=== PATIENT | female | born 1960 | race Caucasian/White ===

== ENCOUNTER → 2023-12-12 10:55 | Outpatient (CLI) | payer BC, SELFPAY ==
--- NOTE | 2023-12-12 10:56 | DI.MG.S_ITS ---
BILATERAL DIGITAL SCREENING MAMMOGRAM 3D/2D WITH CAD: 12/12/2023 CLINICAL: Routine screening. Comparison is made to exams dated: 07/17/2022 mammogram, 02/28/2021 mammogram, and 12/04/2019 mammogram - outside location. The breasts are heterogeneously dense, which may obscure small masses (category c / 51-75% glandular tissue). Current study was also evaluated with a Computer Aided Detection (CAD) system. There is a biopsy clip in the right breast. No significant masses, calcifications, or other findings are seen in either breast. There has been no significant interval change. IMPRESSION: NEGATIVE There is no mammographic evidence of malignancy. A 1 year screening mammogram is recommended. Based on the Tyrer Cuzick model (a risk assessment model) the patient's lifetime risk is 11.3% and her 10 year risk is 4.9%. According to the ACR, ACS, and NCCN guidelines, an annual breast MRI exam along with mammogram is recommended if the patient's lifetime risk is 20% or greater. This exam was interpreted at Station ID: [id number]. NOTE: For mammograms, a report in lay terms will be sent to the patient. Approximately 15% of breast malignancies will not be visualized mammographically. In the management of a palpable breast mass, a negative mammogram must not discourage biopsy of a clinically suspicious lesion. Electronically Signed By: Marcelo botello/angelica:12/12/2023 17:03:54 letter sent: Normal Exam ACR BI-RADS Category 1: Negative
== END ==
PROVIDERS: PCP Family Medicine; Referring Provider Family Medicine; Visit Provider Family Medicine
DX: Z12.31 Encounter for screening mammogram for malignant neoplasm of breast (principal); R92.333 Mammographic heterogeneous density, bilateral breasts
CPT/HCPCS: 77063; 77067

== ENCOUNTER → 2024-01-06 07:55 | Outpatient (CLI) | payer BC, SELFPAY ==
[2024-01-06 10:02] LABS: Cholesterol 245 mg/dL (140-199); HDL Cholesterol 85 mg/dL (40-60); LDL Cholesterol Calculated 150 mg/dL (<100); Triglycerides 50 mg/dL (35-150)
== END ==
PROVIDERS: PCP Family Medicine; Referring Provider Family Medicine; Visit Provider Family Medicine
DX: Z13.220 Encounter for screening for lipoid disorders (principal); Z83.42 Family history of familial hypercholesterolemia
CPT/HCPCS: 36415; 80061

== ENCOUNTER 2024-02-21 08:27 | Day surgery (SDC) | payer BC, SELFPAY ==
--- NOTE | 2024-02-21 | PATH_ITS ---
[facility] Accession Number: [id number] No. of containers..01 Tissue . 01 Material submitted: . rectum - RECTAL POLYP . 01 Diagnosis: A. RECTUM, POLYPECTOMY: Tubular adenoma. [facility] 02/24/2024 1634 Local . 01 Electronically signed: . Katie Thomas MD, Pathologist NPI- [id number] . 01 Gross description: . Received in formalin labeled with two patient identifiers and rectal polyp, and consists of a 0.6 x 0.4 x 0.1 cm omer-brown irregular soft tissue which is entirely submitted in cassette A1. ([id number]) /JUD 02/23/2024 0702 Local . 01 Pathologist provided ICD-10: Z12.11 . 01 CPT . 167265 Specimen Comment: A courtesy copy of this report has been sent to [facility] Pathology Performed at: [address] [address], [place], [place] [id number] MD Stephon Evangelista MD Phone: [phone]
[2024-02-21 09:13] VITALS: BP 112/61; PULSE 69; RESP 16; TEMP 36.2; O2SAT 98
--- NOTE | 2024-02-21 09:56 | PM.HP.1 ---
History of Present Illness History of Present Illness Date Patient Seen: 02/21/24 Time Patient Seen: 09:56 Chief complaint: SDC Narrative: 63-year-old white female, otherwise healthy, presents for 10 year follow-up screening colonoscopy. No changes in bowel habits. [facility] Medical History (Updated 02/21/24 @ 09:57 by Emmett Little MD) Colon cancer screening Social History Smoking Status: Never smoker Meds Home Medications and Allergies Home Medications Medication Instructions Recorded Confirmed Type azithromycin 500 mg tablet 500 mg PO DAILY 3 days #3 tabs 11/18/23 11/18/23 Rx typhoid polysacch vaccine 25 0.5 ml IM ONCE #0.5 mL 12/03/23 Rx mcg/0.5 mL intramuscular syringe sodium,potassium,mag sulfates 17.5 See Rx Instructions PO .COMPLEX 01/16/24 Rx gram-3.13 gram-1.6 gram oral soln #354 mL (Suprep Bowel Prep Kit) Allergies Allergy/AdvReac Type Severity Reaction Status Date / Time amoxicillin Allergy Verified 11/18/23 13:05 doxycycline Allergy Verified 11/18/23 13:05 Erythromycin AdvReac Unknown Abdominal Uncoded 11/18/23 13:29 Pain Review of Systems Review of Systems ROS: Yes All systems reviewed with the patient and are negative except as otherwise documented Exam Vital Signs (past 8 hours): - 02/21/24 09:13 Temperature 97.2 F L Pulse Rate 69 Respiratory Rate 16 Blood Pressure 112/61 Pulse Oximetry 98 Oxygen Delivery Method Room Air Oxygen Delivery Method Room Air Narrative Exam Narrative: Gen: NAD, sitting comfortably in bed, appears well HEENT: Sclera are anicteric, head is normocephalic and atraumatic, trachea is midline. CV: RRR, no JVD Resp: clear to auscultation bilaterally, equal chest wall movement bilaterally Abd: soft, nontender, normoactive bowel sounds Ext: no edema, full range of motion Neuro: Cranial nerves II-XII grossly intact, no focal deficits Skin: No erythema or ecchymosis Assessment & Plan Assessment and plan (1) Colon cancer screening: Status: Acute Assessment & Plan narrative: Patient presents for initial screening colonoscopy Risks, benefits, alternatives to colonoscopy explained, including but not limited to bowel perforation or other serious complication requiring surgery at less than 1 in 5000 colonoscopies, abdominal pain, cramping or bleeding and less than 1% of colonoscopies, and the chances that we find a diagnosis that would require further intervention of about 2%. Patient agrees to proceed. Time-Based Coding :: [TOTAL MINUTES] spent with patient and on the chart (including review of chart, obtaining history, exam, reviewing outside data, placing orders, documenting exam and treatment plan, and counseling patient) on [DATE].
--- NOTE | 2024-02-21 10:20 | PM.OP.COLON ---
Operative Date/Time/Diagnoses Date of procedure: 02/21/24 Time of procedure: 10:20 Pre-op diagnosis: Personal history of polyps Post-op diagnosis: same Procedure & Clinicians Study performed: Colonoscopy with cold snare polypectomy Same procedure as scheduled: Yes Indications: Personal history of polyps Surgeon: Emmett Little Procedure Notes SCOAP/Timeout: Performed Procedure in detail: Time-out was performed. Mac was induced. Patient was placed in left lateral decubitus position. The perineum was inspected without any gross abnormality. Lubricated pediatric colonoscope was inserted and advanced to the cecum. The terminal ileum was intubated. The colonoscope was withdrawn slowly inspecting the circumference of the colon. Very small polyps may have been missed, prep quality was adequate. Small, benign-appearing rectal polyp, less than 10 mm in size was removed with cold snare polypectomy. Completely removed and retrieved. Retroflexed view of the rectum showed small, non prolapsed nonbleeding internal hemorrhoids. The scope was withdrawn the patient was taken to PACU in good condition. Scope withdrawal time: 6 Sedation minutes: 12 Findings: polyp(s) Specimen(s): other (Rectal polyp) Complications: none Impression: Benign polyp Post-procedure Recommendations: Colonoscopy in 10 years (Next colonoscopy in 7-10 years) Plan for aftercare: home Follow up: as needed Disposition: PACU
[2024-02-21 10:24] VITALS: BP 95/49; PULSE 69; RESP 16; TEMP 36.2; O2SAT 95
[2024-02-21 10:29] VITALS: BP 98/58; PULSE 75; RESP 18; O2SAT 99
[2024-02-21 10:34] VITALS: BP 104/63; PULSE 74; RESP 14; TEMP 36.2; O2SAT 99
[2024-02-21 10:42] VITALS: BP 93/64; PULSE 74; RESP 14; TEMP 36.2; O2SAT 97
== END 2024-02-21 10:52 | disposition home or self-care (01) ==
PROVIDERS: PCP Family Medicine; Referring Provider Surgery; Visit Provider Surgery
PROC: 0DJD8ZZ Inspection of Lower Intestinal Tract, Via Natural or Artificial Opening Endoscopic (ICD-10-PCS; CPT 45378; principal; 2024-02-21 09:45)
DX: Z12.11 Encounter for screening for malignant neoplasm of colon (principal); Z86.0100 Personal history of colon polyps, unspecified; D12.8 Benign neoplasm of rectum
CPT/HCPCS: 45385; J2704

== ENCOUNTER → 2025-02-01 | Outpatient (CLI) | payer BC, SELFPAY ==
--- NOTE | 2025-02-01 09:23 | DI.MG.S_ITS ---
MM screening mammo BI: 02/01/2025. BI-RADS: 0 CLINICAL: 64-year old female for bilateral screening mammogram. Tyrer-Cuzick lifetime risk of 10.7%. No personal or first-degree family history of breast cancer. The patient had a prior right breast biopsy. PRIOR EXAMS 12/12/2023, 07/17/2022, 02/28/2021, 12/04/2019. MAMMOGRAPHY TECHNIQUE: 2D and 3D (tomosynthesis) digital mammographic views obtained, with additional images as needed for full coverage. Current study was also evaluated with a Computer Aided Detection (CAD) system. DENSITY C. The breasts are heterogeneously dense, which may obscure small masses. MAMMOGRAPHY FINDINGS Right: CC only, Inner, Posterior depth: Asymmetry needing additional imaging evaluation. Right: Biopsy marker present on the right. Left: No suspicious mass, asymmetry, microcalcification, or other abnormality seen. IMPRESSION: Right (Asymmetry): CC only, Inner, Posterior depth * Incomplete - asymmetry needing additional imaging evaluation. Left * No evidence of malignancy. RECOMMENDATIONS Right: CC only, Inner, Posterior depth * Further evaluation with diagnostic mammography and diagnostic ultrasound. Ultrasound to be performed only if needed. OVERALL ASSESSMENT CATEGORY BI-RADS-0: Incomplete - Need Additional Imaging Evaluation. ELECTRONICALLY SIGNED: Marcelo Toribio M.D. on 02/01/2025 at 10:16:31 AM PT Interpreting Station ID: [id number]
== END ==
LOC: MAMMO 09:23
PROVIDERS: PCP Family Medicine; Referring Provider Family Medicine; Visit Provider Family Medicine
DX: Z12.31 Encounter for screening mammogram for malignant neoplasm of breast (principal); R92.333 Mammographic heterogeneous density, bilateral breasts
CPT/HCPCS: 77063; 77067

== ENCOUNTER → 2025-02-18 09:22 | Outpatient (CLI) | payer BC, SELFPAY ==
--- NOTE | 2025-02-18 09:23 | DI.MG.S_ITS ---
MM diagnostic mammo unilat RT, US breast RT limited: 02/18/2025 BI-RADS: 2 CLINICAL: 64-year old female for right diagnostic mammogram and right diagnostic breast ultrasound that is a recall from screening on 02/01/2025. Tyrer-Cuzick lifetime risk of 10.7%. No personal or first-degree family history of breast cancer. The patient had a prior right breast biopsy. PRIOR EXAMS 02/01/2025, 12/12/2023, 07/17/2022, 02/28/2021, 12/04/2019. MAMMOGRAPHY TECHNIQUE: 2D and 3D (tomosynthesis) digital mammographic views obtained, with additional images as needed for full coverage. Current study was also evaluated with a Computer Aided Detection (CAD) system. ULTRASOUND TECHNIQUE Real-time barton scale imaging of the area of clinical interest was performed with image documentation. TARGETED Right Breast Ultrasound: Real-time ultrasound exam was performed focused to area of clinical and/or imaging concern. DENSITY Right: C. The breast is heterogeneously dense, which may obscure small masses. MAMMOGRAPHY FINDINGS Right: CC only, Inner: The asymmetry seen on recent screening mammogram did not persist with additional imaging and is consistent with superimposition of normal breast tissue. There are no suspicious masses, calcifications, or other findings in the breast. ULTRASOUND FINDINGS Right: Lower Inner at 4:00, 6 cm from nipple: There is no sonographic abnormality to account for imaging concern on mammography. Right: Lower Inner at 5:00, 6 cm from nipple: There is no sonographic abnormality to account for imaging concern on mammography. Right: Lower Outer at 6:00, 6 cm from nipple: There is no sonographic abnormality to account for imaging concern on mammography. IMPRESSION: Right * No evidence of malignancy with benign findings. RECOMMENDATIONS Bilateral * Annual screening mammography. COMMENTS: Findings and recommendations were conveyed to the patient during today's evaluation. OVERALL ASSESSMENT CATEGORY BI-RADS-2: Benign. The [employer] recommends annual screening mammography beginning at age 40 for women with average risk of breast cancer. ELECTRONICALLY SIGNED: Julianna Hannon M.D. on 02/18/2025 at 01:24:26 PM PT Interpreting Station ID: [id number]
== END ==
LOC: MAMMO 09:22
PROVIDERS: PCP Family Medicine; Referring Provider Family Medicine; Visit Provider Family Medicine
DX: N64.89 Other specified disorders of breast (principal); R92.331 Mammographic heterogeneous density, right breast
CPT/HCPCS: 76642; 77065; G0279